=== PATIENT | female | born 1975 | race Two or more races ===

== ENCOUNTER → 2016-12-04 | Day surgery (SDC) | payer BC ==
[~2016-12-04] VITALS: Ht 162.6 cm; Wt 108.9 kg
[~2016-12-04] MED LIST: BUPIVACAINE-EPI 0.25%-1:200000 MPF 30 ML VIAL. ONE; CEFAZOLIN 2GM PREMIX 50 ML IV PRN; CEFOXITIN 1GM IVPB FOR OMNI 50 ML IV SCH; DESFLURANE 61 TO 120 MINUTES IH ONE; DESFLURANE > 120 MINUTES IH ONE; DEXAMETHASONE SOD PHOS 20 MG/5 ML VIAL. ONE; DOCU-27 PO; FAMOTIDINE 20 MG/2 ML VIAL ONE; FENTANYL PF 100 MCG/2 ML VIAL. IV PRN; FENTANYL PF 100 MCG/2 ML VIAL. ONE; GLYCOPYRROLATE 1 MG/5 ML VIAL. ONE; IBUP-1060 PO; IV RINGERS,LACTATED 1000ML 1,000 ML IV SCH; LIDOCAINE 1% 1 ML SYRINGE. ID PRN; LIDOCAINE 2% 100 MG/5 ML DISP.SYRIN. ONE; MORPHINE SULFATE 2 MG/ML DISP.SYRIN. IV PRN; MULT-245 PO; NEOSTIGMINE METHYLSULFATE 5 MG/5 ML SYRINGE. ONE; ONDANSETRON PF 4 MG/2 ML VIAL. IV PRN; ONDANSETRON PF 4 MG/2 ML VIAL. ONE; OXYC-323 PO; OXYCODONE/APAP 5/325 TABLET. PO PRN; PROCHLORPERAZINE 10 MG/2 ML VIAL. IV PRN; PROPOFOL 20 ML IV ONE; ROCURONIUM 50 MG/5 ML VIAL. ONE; SEVOFLURANE 61 TO 120 MINUTES. IH ONE; SURGICEL HEMOSTAT 4X8 EACH. ONE; TRAM50TA PO; TRIA1TAB3 PO; VENL75TA PO
--- NOTE | 2016-12-04 13:00 | PDOC ---
BRIEF OPERATIVE NOTE Pre-Op Diagnosis Right adnexal mass Post-Op Diagnosis ROV Cyst Procedure Performed [facility] Surgeon Dr. Oliva Anesthesia Type: General Blood Loss 10 ml Specimens Obtained RIght fallopian tube and Right ovary Findings Right complex ovarian cyst; nml DEBBIE and nml fallopian tubes danika. Complications none Additional Remarks pt. WADE Nassar Jr, MD Dec 04, 2016 13:00
--- NOTE | 2016-12-04 13:00 | DISCH ---
DISCHARGE INSTRUCTIONS Condition on Discharge Condition on Discharge: Stable Activity After Discharge Activity Instructions for Disc: Activity as tolerated Lifting Instructions after Dis: No heavy lifting Driving Instructions after Dis: Do not drive today Diet after Discharge Diet after Discharge: Regular Contacting the DRArthur after DC Call your doctor for: Concerns you may have Follow-Up Follow up with: Dr. Oliva in 1 week. WADE OLIVA Jr, MD Dec 04, 2016 13:00
[2016-12-04] MEDS: HYDROMORPHONE 2 MG/ML VIAL. IV PRN ×2 (13:07→13:18)
[2016-12-04 15:00] VITALS: BP 111/55
--- NOTE | 2016-12-04 18:02 | OP ---
DATE OF SURGERY: PREOPERATIVE DIAGNOSIS: Right adnexal mass. POSTOPERATIVE DIAGNOSIS: Right ovarian cyst. PROCEDURE: Laparoscopic RSO. SURGEON: Chan Oliva MD ANESTHESIA: GETA. ESTIMATED BLOOD LOSS: 10 mL. COMPLICATIONS: None. FINDINGS: Right complex ovarian cyst, normal left ovary, normal fallopian tubes bilaterally. COMPLICATIONS: None. SUMMARY: A 41-year-old with right adnexal mass with pain uncontrolled by medications. The patient was counseled on laparoscopic right ovarian cystectomy versus right salpingo-oophorectomy, risks, benefits and expectations and voiced a clear understanding to proceed. DESCRIPTION OF PROCEDURE: The patient was taken to surgery suite and placed in dorsal lithotomy position where she was prepped with ChloraPrep for abdominal prep and Betadine for vaginal prep. After adequate anesthesia, moist sponge stick was placed vaginally. Attention was then placed on abdomen. A small transverse skin incision was made just below the umbilicus with a scalpel. The Veress needle was then placed through the infraumbilical incision site. The abdomen was allowed to insufflate up to 1-1/2 liters of CO2 gas. The Veress needle was then removed. A 5 mm trocar was placed. The scope was positioned. The left fallopian tube and ovary appeared normal. The right ovary demonstrated a 6 cm complex cyst involving the entire ovary. Right fallopian tube appeared normal. Two incisions were made in the left lower quadrant with a scalpel in which 5 mm and 11 mm ports were placed. With the aid of graspers and EnSeal device, the right infundibula ligament was coagulated and dissected. The right fallopian tube and ovary were then placed in the Endobag and removed. Suction irrigation was utilized to verify good hemostasis. A small amount of normal saline was left in the posterior cul-de-sac. The trocars were then removed under direct visualization. The abdomen was allowed to deflate as much as possible along with mechanical manipulation. The left lower quadrant port which housed the 11 mm trocar was closed at the fascial layer using 2-0 Vicryl suture in a [id number] manner. The three skin incisions were reapproximated using 4-0 Vicryl suture in subcuticular manner. A 0.25% Marcaine with epinephrine was injected at each incision site. The moist sponge stick was then removed. The patient tolerated the procedure well and was taken to recovery room in stable condition. Sponge and needle counts correct x 3. CHAN OLIVA MD DR: SARAH/noah JOB#: [id number] / [id number]
--- NOTE | 2016-12-07 14:24 | PATHOLOGY ---
PATHOLOGY REPORT * * * * * * * * FINAL DIAGNOSIS: Fallopian tube and ovary, right salpingo-oophorectomy: - Follicular cyst of ovary. - Multiple small cystic follicles of ovary. COMMENT: There is no evidence of malignancy. (JPM:; d/t: 12/07/16) REPORT ELECTRONICALLY SIGNED BY: James Ochoa M.D. DATE/TIME: 12/07/2016 14:20 * * * * * * * * GROSS PATHOLOGY: The specimen is received in formalin labeled "Ktahleen Walker, right fallopian tube and ovary". Received is a 14 g adnexal specimen consisting of a fimbriated fallopian tube measuring 3.5 cm in length by 0.8 cm in diameter attached to a 3.5 x 3.2 x 1.5 cm ovary. The fallopian tube appears grossly unremarkable and sectioning through the ovary reveals multiple unilocular cystic structures ranging in size from 0.1 to 3.1 cm that are devoid of content. The cyst marcos are smooth in appearance with no gross evidence of papillary excrescences. A slight amount of normal pale aggarwal ovarian stroma is grossly identified. The specimen is submitted representatively in cassettes A1 through A4. (CAA; 12/04/2016) INITIAL CPT CODE(S): A; 46967 Professional services [place] [address] Technical services performed by [employer] at [address] [place] [address], [address] [address]. SPECIMEN(S) RECEIVED: A.Right fallopian tube and ovary CLINICAL HISTORY: Right ovarian cyst PATIENT: KATHLEEN WALKER /AGE: 8 1975 (Age: 41) PATIENT #: [id number] ALT CASE #: SPECIMEN COLLECTION DATE: 12/04/2016 SPECIMEN RECEIVED DATE: 12/04/2016 [facility] [place] [address] - PHONE: [phone] * * * END OF REPORT * * *
== END ==
LOC: SURG 09:48
PROVIDERS: ATTEND Obstetrics & Gynecology
DX: N83.201 Unspecified ovarian cyst, right side (principal); I10 Essential (primary) hypertension; F32.9 Major depressive disorder, single episode, unspecified; Z98.51 Tubal ligation status; Z90.710 Acquired absence of both cervix and uterus
CPT/HCPCS: 36415; 58661; 86850; 86900; 86901; J0690; J0694; J0780; J1100; J1170; J2405; J2704; J2710; J3010; J3490; S0028; 88305; A4215; C1782; J7030; J7120

== ENCOUNTER 2016-12-13 12:20 | Emergency (ER) | payer BC ==
[~2016-12-13] VITALS: Ht 157.5 cm; Wt 99.8 kg
[~2016-12-13 12:20] MED LIST changes: -BUPIVACAINE-EPI 0.25%-1:200000 MPF 30 ML VIAL. ONE; -CEFAZOLIN 2GM PREMIX 50 ML IV PRN; -CEFOXITIN 1GM IVPB FOR OMNI 50 ML IV SCH; -DESFLURANE 61 TO 120 MINUTES IH ONE; -DESFLURANE > 120 MINUTES IH ONE; -DEXAMETHASONE SOD PHOS 20 MG/5 ML VIAL. ONE; -FAMOTIDINE 20 MG/2 ML VIAL ONE; -FENTANYL PF 100 MCG/2 ML VIAL. IV PRN; -FENTANYL PF 100 MCG/2 ML VIAL. ONE; -GLYCOPYRROLATE 1 MG/5 ML VIAL. ONE; -IV RINGERS,LACTATED 1000ML 1,000 ML IV SCH; -LIDOCAINE 1% 1 ML SYRINGE. ID PRN; -LIDOCAINE 2% 100 MG/5 ML DISP.SYRIN. ONE; -MORPHINE SULFATE 2 MG/ML DISP.SYRIN. IV PRN; -NEOSTIGMINE METHYLSULFATE 5 MG/5 ML SYRINGE. ONE; -ONDANSETRON PF 4 MG/2 ML VIAL. IV PRN; -ONDANSETRON PF 4 MG/2 ML VIAL. ONE; -OXYCODONE/APAP 5/325 TABLET. PO PRN; -PROCHLORPERAZINE 10 MG/2 ML VIAL. IV PRN; -PROPOFOL 20 ML IV ONE; -ROCURONIUM 50 MG/5 ML VIAL. ONE; -SEVOFLURANE 61 TO 120 MINUTES. IH ONE; -SURGICEL HEMOSTAT 4X8 EACH. ONE
[2016-12-13] MEDS ORDERED: IV NORMAL SALINE 1000ML BAG 1,000 ML IV SCH (14:31)
[2016-12-13 14:43] LABS: BASO # 0.1 x10^3/uL (0.0-0.2); BASO % 1 % (0-3); EOS % 2 % (0-3); HEMATOCRIT 38.8 % (36.0-47.0); LYMPH # 3.4 x10^3/uL (1.0-4.8); LYMPH % 29 % (24-48); MEAN CORPUSCULAR HEMOGLOBIN 23 pg (25-35); MEAN CORPUSCULAR HGB CONC 31 g/dL (31-37); MEAN CORPUSCULAR VOLUME 73 fL (79-100); MONO % 5 % (0-9); NEUT % 63 % (31-73); PLATELET COUNT 338 x10^3/uL (140-400); RED BLOOD COUNT 5.29 x10^6/uL (3.50-5.40); RED CELL DISTRIBUTION WIDTH 20.5 % (11.5-14.5); WHITE BLOOD COUNT 11.8 x10^3/uL (4.0-11.0)
[2016-12-13 14:45] LABS: BILIRUBIN,URINE NEGATIVE (NEG); GLUCOSE,URINE NEGATIVE (NEG); NITRITE,URINE NEGATIVE (NEG); PROTEIN,URINE NEGATIVE (NEG-TRACE); UROBILINOGEN,URINE 0.2 mg/dL (0.2 mg/dL)
[2016-12-13] MEDS ORDERED: ONDANSETRON PF 4 MG/2 ML VIAL. IV ONE (14:45)
[2016-12-13 15:04] LABS: BACTERIA,URINE FEW /HPF (0-FEW); RBC,URINE 0 /HPF (0-2); SQUAMOUS EPITHELIAL CELL,UR MANY /LPF
[2016-12-13 15:07] LABS: ANION GAP 9 (6-14); BLOOD UREA NITROGEN 12 mg/dL (7-20); CALCIUM 8.8 mg/dL (8.5-10.1); CARBON DIOXIDE 28 mmol/L (21-32); CHLORIDE 101 mmol/L (98-107); CREATININE 0.6 mg/dL (0.6-1.0); GFR 110.7; GLUCOSE 85 mg/dL (70-99); SODIUM 138 mmol/L (136-145)
[2016-12-13 15:15] LABS: ALBUMIN 3.6 g/dL (3.4-5.0); ALK PHOS 88 U/L (46-116); ALT (SGPT) 28 U/L (14-59); AST (SGOT) 22 U/L (15-37); DIRECT BILIRUBIN < 0.1 mg/dL (0.0-0.2); TOTAL BILIRUBIN 0.2 mg/dL (0.2-1.0); TOTAL PROTEIN 7.6 g/dL (6.4-8.2)
[2016-12-13] MEDS ORDERED: FENTANYL PF 100 MCG/2 ML VIAL. IV ONE (15:45)
[2016-12-13] MEDS ORDERED: FAMOTIDINE 20 MG/2 ML VIAL IVP ONE (15:45)
--- NOTE | 2016-12-13 16:30 | PHYS DOC ---
Past Medical History Past Medical History: Other Additional Past Medical Histor: abnormal uterine bleeding Past Surgical History: Hysterectomy Additional Past Surgical Histo: uterine biopsy, Left ovarian CYST REMOVAL Alcohol Use: None Drug Use: None Adult General Chief Complaint Chief Complaint: ABDOMINAL PAIN HPI HPI Patient is a 41 year old female who presents with left upper quadrant abdominal pain that is constant and achy associated with nonbloody nonbilious emesis that started this morning. Her abdominal pain has since generalized. She denies fever or chills, diarrhea, constipation, dysuria, hematuria, chest pain, cough Review of Systems Review of Systems Constitutional: Denies fever or chills [] Eyes: Denies change in visual acuity, redness, or eye pain [] HENT: Denies nasal congestion or sore throat [] Respiratory: Denies cough or shortness of breath [] Cardiovascular: No additional information not addressed in HPI [] GI: Denies bloody stools or diarrhea [] : Denies dysuria or hematuria [] Musculoskeletal: Denies back pain or joint pain [] Integument: Denies rash or skin lesions [] Neurologic: Denies headache, focal weakness or sensory changes [] Endocrine: Denies polyuria or polydipsia [] Current Medications Current Medications Current Medications Medications (Trade) Dose Ordered Sig/Jed Start Time Stop Time Status Last Admin Dose Admin Famotidine (Pepcid) 20 mg 1X ONCE 12/13/16 15:45 12/13/16 15:46 DC 12/13/16 16:18 20 MG Fentanyl Citrate (Fentanyl 2ml Vial) 75 mcg 1X ONCE 12/13/16 15:45 12/13/16 15:46 DC 12/13/16 16:19 75 MCG Info (Do NOT chart on this entry -- for MONITORING) 1 each PRN DAILY PRN 12/13/16 16:45 12/13/16 18:24 DC Iohexol (Omnipaque 300 Mg/ml) 75 ml 1X ONCE 12/13/16 17:15 12/13/16 17:16 DC 12/13/16 17:25 75 ML Ondansetron HCl (Zofran) 4 mg 1X ONCE 12/13/16 14:45 12/13/16 14:46 DC 12/13/16 15:04 4 MG Sodium Chloride (Iv Sodium Chloride 0.9% 1000ml Bag) 1,000 ml @ 1,000 mls/hr Q1H 12/13/16 14:31 12/13/16 15:30 DC 12/13/16 15:04 1,000 MLS/HR Allergies Allergies Allergies Coded Allergies Type Severity Reaction Last Updated Verified No Known Drug Allergies 12/04/16 No Physical Exam Physical Exam Constitutional: Well developed, well nourished, no acute distress, non-toxic appearance. [] HENT: Normocephalic, atraumatic, bilateral external ears normal, oropharynx moist, nose normal. [] Eyes: PERRLA, EOMI. [] Neck: Normal range of motion, supple. [] Cardiovascular:Heart rate regular rhythm [] Lungs & Thorax: Bilateral breath sounds clear to auscultation [] Abdomen: Bowel sounds normal, soft, moderate left upper quadrant tenderness with minimal general, well-appearing surgical incisions, no guarding or rebound. [] Skin: Warm, dry, no erythema, no rash. [] Back: No tenderness, no CVA tenderness. [] Extremities: ROM intact, no edema. [] Neurologic: Alert and oriented X 3, normal motor function, normal sensory function, no focal deficits noted. [] Psychologic: Affect normal, judgement normal, mood normal. [] Current Patient Data Vital Signs Vital Signs Date Time Temp Pulse Resp B/P Pulse Ox O2 Delivery O2 Flow Rate FiO2 12/13/16 18:21 79 16 129/67 97 Room Air 12/13/16 14:14 97.9 97.9 Lab Values Laboratory Tests Test 12/13/16 14:10 12/13/16 14:18 Urine Collection Type Unknown Urine Color Yellow Urine Clarity Clear Urine pH 7.0 Urine Specific [place] 1.015 Urine Protein Negativemg/dL (NEG-TRACE) Urine Glucose (UA) Negativemg/dL (NEG) Urine Ketones (Stick) Negativemg/dL (NEG) Urine Blood Negative (NEG) Urine Nitrite Negative (NEG) Urine Bilirubin Negative (NEG) Urine Urobilinogen Dipstick 0.2mg/dL (0.2 mg/dL) Urine Leukocyte Esterase Negative (NEG) Urine RBC 0/HPF (0-2) Urine WBC 1-4/HPF (0-4) Urine Squamous Epithelial Cells Many/LPF Urine Bacteria Few/HPF (0-FEW) Urine Mucus Slight/LPF White Blood Count 11.8x10^3/uL (4.0-11.0) H Red Blood Count 5.29x10^6/uL (3.50-5.40) Hemoglobin 12.0g/dL (12.0-15.5) Hematocrit 38.8% (36.0-47.0) Mean Corpuscular Volume 73fL (79-100) L Mean Corpuscular Hemoglobin 23pg (25-35) L Mean Corpuscular Hemoglobin Concent 31g/dL (31-37) Red Cell Distribution Width 20.5% (11.5-14.5) H Platelet Count 338x10^3/uL (140-400) Neutrophils (%) (Auto) 63% (31-73) Lymphocytes (%) (Auto) 29% (24-48) Monocytes (%) (Auto) 5% (0-9) Eosinophils (%) (Auto) 2% (0-3) Basophils (%) (Auto) 1% (0-3) Neutrophils # (Auto) 7.4x10^3uL (1.8-7.7) Lymphocytes # (Auto) 3.4x10^3/uL (1.0-4.8) Monocytes # (Auto) 0.6x10^3/uL (0.0-1.1) Eosinophils # (Auto) 0.2x10^3/uL (0.0-0.7) Basophils # (Auto) 0.1x10^3/uL (0.0-0.2) Platelet Estimate Adequate (ADEQUATE) Hypochromasia Mod Poikilocytosis Slight Anisocytosis Mod Microcytosis Slight Sodium Level 138mmol/L (136-145) Potassium Level 4.0mmol/L (3.5-5.1) Chloride Level 101mmol/L (98-107) Carbon Dioxide Level 28mmol/L (21-32) Anion Gap 9 (6-14) Blood Urea Nitrogen 12mg/dL (7-20) Creatinine 0.6mg/dL (0.6-1.0) Estimated GFR (Cockcroft-Gault) 110.7 Glucose Level 85mg/dL (70-99) Calcium Level 8.8mg/dL (8.5-10.1) Total Bilirubin 0.2mg/dL (0.2-1.0) Direct Bilirubin < 0.1mg/dL (0.0-0.2) Aspartate Amino Transferase (AST) 22U/L (15-37) Alanine Aminotransferase (ALT) 28U/L (14-59) Alkaline Phosphatase 88U/L (46-116) Total Protein 7.6g/dL (6.4-8.2) Albumin 3.6g/dL (3.4-5.0) Lipase 302U/L (73-393) Laboratory Tests 12/13/16 14:18 Laboratory Tests 12/13/16 14:18 Radiology/Procedures Radiology/Procedures CT abdomen and pelvis with IV contrast IMPRESSION 1. Interval development of left spigelian containing fat. There is inflammatory change of the fat. 2. No acute intraperitoneal process is identified. Electronically signed by: Abilio Cortés MD (Dec 13, 2016 17:35:00) Course & Med Decision Making Course & Med Decision Making Pertinent Labs and Imaging studies reviewed. (See chart for details) Workup is unremarkable. She feels better after medications. She is tolerating oral intake. Will give trial of antacid medication. Return precautions given. She understands and agrees with plan. Dragon Disclaimer Dragon Disclaimer This electronic medical record was generated, in whole or in part, using a voice recognition dictation system. Departure Departure Impression: Primary Impression: Abdominal pain Additional Impression: Nausea Disposition: 01 HOME, SELF-CARE Condition: STABLE Referrals: ELIZABETH LAINEZ MD (PCP) Patient Instructions: Abdominal Pain (Nonspecific) Additional Instructions: Take Zofran as needed for nausea. Take Tylenol or ibuprofen as needed for pain. Follow-up with your primary care doctor within one week. Return for any concerns. Scripts Famotidine 20 Mg Trvvil46 Mg PO BID #30 TAB Prov:Manny SENIOR MD 12/13/16 Ondansetron (Zofran Odt)4 Mg Tab.rapdis1 Tab SL Q8HRS #10 TAB Prov:Manny SENIOR MD 12/13/16 Problem Qualifiers Primary Impression: Abdominal pain Abdominal location: left upper quadrant Qualified Code: R10.12 - Left upper quadrant pain Manny SENIOR MD Dec 13, 2016 16:30
[2016-12-13] MEDS ORDERED: CONTRAST GIVEN MC PRN (16:45)
[2016-12-13] MEDS ORDERED: IOHEXOL 300 MG/ML 75 ML VIAL IV ONE (17:15)
--- NOTE | 2016-12-13 17:36 | RAD ---
PROCEDURE CT abdomen pelvis with intravenous contrast. HISTORY Left-sided abdominal pain and nausea. TECHNIQUE After administration of intravenous contrast only, 75 mL Omnipaque 300, CT of the abdomen and pelvis was performed. Exposure: One or more of the following individualized dose reduction techniques were utilized for this examination: 1. Automated exposure control. 2. Adjustment of the mA and/or kV according to patient size. 3. Use of iterative reconstruction technique. COMPARISON CT abdomen pelvis November 29, 2016. FINDINGS Evaluation of enteric structures may be limited by lack of oral contrast. Liver, spleen, pancreas, gallbladder, and bilateral adrenal glands are unremarkable. Bilateral kidneys enhance symmetrically. No bowel obstruction or inflammation is seen. Appendix is without evidence of inflammation. Uterus is absent. There is interval development of a small fat containing Spigelian hat hernia with the hernia defect estimated to measure 1.4 centimeters in dimension. There is inflammation of the herniated fat. IMPRESSION 1. Interval development of left spigelian containing fat. There is inflammatory change of the fat. 2. No acute intraperitoneal process is identified. Electronically signed by: Abilio Cortés MD (Dec 13, 2016 17:35:00)
[2016-12-13] MEDS ORDERED: ONDA4TAB10 SL (18:14)
[2016-12-13 18:21] VITALS: BP 129/67
[2016-12-13] MEDS ORDERED: FAMO20TA5 PO (18:27)
[2016-12-13 18:57] LABS: ANISOCYTOSIS MOD; HYPOCHROMIA MOD; MICROCYTOSIS SLIGHT; PLT ESTIMATE ADEQUATE (ADEQUATE); POIKILOCYTOSIS SLIGHT
== END 2016-12-13 18:24 | disposition home or self-care (01) ==
LOC: ER 12:20
DX: R10.12 Left upper quadrant pain (principal); R11.2 Nausea with vomiting, unspecified; Z90.710 Acquired absence of both cervix and uterus
CPT/HCPCS: 36415; 74177; 80048; 80076; 81001; 83690; 85007; 85027; 96361; 96374; 96375; 99285; J2405; J3010; J7030; Q9967; S0028

== ENCOUNTER 2016-12-31 07:03 | Observation (INO) | payer BC ==
[~2016-12-31] VITALS: Ht 157.5 cm; Wt 104.3 kg
[2016-12-31] VITALS (16 sets, daily range): BP systolic 104–137; BP diastolic 53–74
[~2016-12-31 07:03] MED LIST changes: +CLINDAMYCIN 600MG PREMIX 50 ML IV PRN; +FAMO20TA5 PO; +FENTANYL PF 100 MCG/2 ML VIAL. IV PRN; +HYDROMORPHONE 2 MG/ML VIAL. IV PRN; +IV RINGERS,LACTATED 1000ML 1,000 ML IV SCH; +LIDOCAINE 1% 1 ML SYRINGE. ID PRN; +MORPHINE SULFATE 2 MG/ML DISP.SYRIN. IV PRN; +ONDA4TAB10 SL; +ONDANSETRON PF 4 MG/2 ML VIAL. IV PRN; +PROCHLORPERAZINE 10 MG/2 ML VIAL. IV PRN
--- NOTE | 2016-12-31 07:07 | HP ---
ADMIT DATE: 12/31/2016 HISTORY OF PRESENT ILLNESS: The patient is referred by Dr. Rahman because of right abdominal pain. Apparently, this has been there for 2 months. Her history is pertinent in that she had right tube removed about a month or two ago and had in August 2016 hysterectomy. The hysterectomy was for bleeding; I think the ovary was for cyst, but I am not sure. At any rate, she has had this pain for about 2 months, it is increasing, went to the Emergency Room, had a CT scan which I do not have the results of. Someone told her that she has spigelian hernia. I am not certain if that is true. We will have to see the CT scan. PAST MEDICAL HISTORY: Shows that she takes no medicine except for her legs were swollen and apparently, she takes HydroDIURIL or some type of diuretic for that and otherwise, no diseases. ALLERGIES: NOT CERTAIN. SOME SLEEPY MEDICINE MADE HER EYES SWELL UP, SHE DOES NOT KNOW WHAT THAT WAS. She does not speak [place] well and otherwise does not have any other problems, but the pain is quite severe and she wishes to have this looked into. I will go and look at the CT that she had and see if it was appropriate and if in fact she does have a hernia, we will plan to repair it. We will see her back in 6 days. We have given her Percocet for pain 5/325. Otherwise, we will see her back after I review the CT and make arrangements for other x-rays if necessary. FAMILY HISTORY: Noncontributory. She has 1 child, alive, he is 13. SOCIAL HISTORY: Does not smoke, drink or use illicit drugs. PHYSICAL EXAMINATION: GENERAL: Shows an obese female in no acute distress. HEAD, EARS, EYES, NOSE, AND THROAT: Grossly normal. LUNGS: Clear bilaterally to auscultation. HEART: No murmurs, heaves, friction rubs or thrills, and had a rate estimated to be about 72 beats per minute and it was regular. ABDOMEN: Tenderness in the mid abdomen on the left just lateral to the umbilicus. No masses could be demonstrated. There was no organomegaly otherwise. She did not have rebound or guarding, but just had tenderness there. Pelvic was not done. IMPRESSION: 1. Abdominal pain. 2. Possible spigelian hernia. EFREN SMITH MD DR: Bryon JOB#: [id number] / [id number]
[2016-12-31 07:46] LABS: CALCIUM 9.1 mg/dL (8.5-10.1); CREATININE 0.7 mg/dL (0.6-1.0); GFR 92.7; POTASSIUM 3.7 mmol/L (3.5-5.1)
[2016-12-31 07:52] LABS: ALBUMIN 3.3 g/dL (3.4-5.0); ALBUMIN/GLOBULIN RATIO 0.8 (1.0-1.7); PROTHROMBIN TIME PATIENT 12.4 SEC (11.7-14.0); TOTAL BILIRUBIN 0.3 mg/dL (0.2-1.0); TOTAL PROTEIN 7.6 g/dL (6.4-8.2)
[2016-12-31 07:57] LABS: BASO # 0.1 x10^3/uL (0.0-0.2); BASO % 1 % (0-3); EOS % 3 % (0-3); HEMATOCRIT 38.7 % (36.0-47.0); HEMOGLOBIN 12.3 g/dL (12.0-15.5); LYMPH # 3.3 x10^3/uL (1.0-4.8); LYMPH % 31 % (24-48); MEAN CORPUSCULAR HEMOGLOBIN 24 pg (25-35); MEAN CORPUSCULAR HGB CONC 32 g/dL (31-37); MEAN CORPUSCULAR VOLUME 74 fL (79-100); MONO % 7 % (0-9); NEUT % 59 % (31-73); PLATELET COUNT 294 x10^3/uL (140-400); RED BLOOD COUNT 5.22 x10^6/uL (3.50-5.40); RED CELL DISTRIBUTION WIDTH 21.9 % (11.5-14.5); WHITE BLOOD COUNT 10.4 x10^3/uL (4.0-11.0)
[2016-12-31] MEDS ORDERED: ONDANSETRON PF 4 MG/2 ML VIAL. ONE (08:33)
[2016-12-31] MEDS ORDERED: FAMOTIDINE 20 MG/2 ML VIAL ONE (08:33)
[2016-12-31] MEDS ORDERED: DEXAMETHASONE SOD PHOS 20 MG/5 ML VIAL. ONE (08:33)
[2016-12-31] MEDS ORDERED: LIDOCAINE 2% 100 MG/5 ML DISP.SYRIN. ONE (08:33)
[2016-12-31] MEDS ORDERED: PROPOFOL 20 ML IV ONE (08:33)
[2016-12-31] MEDS ORDERED: MIDAZOLAM HCL 2 MG/2 ML VIAL. ONE (08:35)
[2016-12-31] MEDS ORDERED: ROCURONIUM 50 MG/5 ML VIAL. ONE (08:36)
[2016-12-31] MEDS ORDERED: FENTANYL PF 100 MCG/2 ML VIAL. ONE ×2 (08:36→12:27)
--- NOTE | 2016-12-31 08:59 | PDOC ---
SURGICAL PROGRESS NOTE Subjective No change in dictated H&P. Vital Signs Vital Signs Date Time Temp Pulse Resp B/P Pulse Ox O2 Delivery O2 Flow Rate FiO2 12/31/16 07:26 98.2 87 16 155/77 96 Room Air 98.2 Labs Laboratory Tests Test 12/31/16 07:30 White Blood Count 10.4x10^3/uL (4.0-11.0) Red Blood Count 5.22x10^6/uL (3.50-5.40) Hemoglobin 12.3g/dL (12.0-15.5) Hematocrit 38.7% (36.0-47.0) Mean Corpuscular Volume 74fL (79-100) Mean Corpuscular Hemoglobin 24pg (25-35) Mean Corpuscular Hemoglobin Concent 32g/dL (31-37) Red Cell Distribution Width 21.9% (11.5-14.5) Platelet Count 294x10^3/uL (140-400) Neutrophils (%) (Auto) 59% (31-73) Lymphocytes (%) (Auto) 31% (24-48) Monocytes (%) (Auto) 7% (0-9) Eosinophils (%) (Auto) 3% (0-3) Basophils (%) (Auto) 1% (0-3) Neutrophils # (Auto) 6.2x10^3uL (1.8-7.7) Lymphocytes # (Auto) 3.3x10^3/uL (1.0-4.8) Monocytes # (Auto) 0.7x10^3/uL (0.0-1.1) Eosinophils # (Auto) 0.3x10^3/uL (0.0-0.7) Basophils # (Auto) 0.1x10^3/uL (0.0-0.2) Prothrombin Time 12.4SEC (11.7-14.0) Prothromb Time International Ratio 1.0 (0.8-1.1) Sodium Level 141mmol/L (136-145) Potassium Level 3.7mmol/L (3.5-5.1) Chloride Level 103mmol/L (98-107) Carbon Dioxide Level 26mmol/L (21-32) Anion Gap 12 (6-14) Blood Urea Nitrogen 14mg/dL (7-20) Creatinine 0.7mg/dL (0.6-1.0) Estimated GFR (Cockcroft-Gault) 92.7 BUN/Creatinine Ratio 20 (6-20) Glucose Level 98mg/dL (70-99) Calcium Level 9.1mg/dL (8.5-10.1) Total Bilirubin 0.3mg/dL (0.2-1.0) Aspartate Amino Transf (AST/SGOT) 21U/L (15-37) Alanine Aminotransferase (ALT/SGPT) 27U/L (14-59) Alkaline Phosphatase 87U/L (46-116) Total Protein 7.6g/dL (6.4-8.2) Albumin 3.3g/dL (3.4-5.0) Albumin/Globulin Ratio 0.8 (1.0-1.7) Laboratory Tests Test 12/31/16 07:30 White Blood Count 10.4x10^3/uL (4.0-11.0) Red Blood Count 5.22x10^6/uL (3.50-5.40) Hemoglobin 12.3g/dL (12.0-15.5) Hematocrit 38.7% (36.0-47.0) Mean Corpuscular Volume 74fL (79-100) Mean Corpuscular Hemoglobin 24pg (25-35) Mean Corpuscular Hemoglobin Concent 32g/dL (31-37) Red Cell Distribution Width 21.9% (11.5-14.5) Platelet Count 294x10^3/uL (140-400) Neutrophils (%) (Auto) 59% (31-73) Lymphocytes (%) (Auto) 31% (24-48) Monocytes (%) (Auto) 7% (0-9) Eosinophils (%) (Auto) 3% (0-3) Basophils (%) (Auto) 1% (0-3) Neutrophils # (Auto) 6.2x10^3uL (1.8-7.7) Lymphocytes # (Auto) 3.3x10^3/uL (1.0-4.8) Monocytes # (Auto) 0.7x10^3/uL (0.0-1.1) Eosinophils # (Auto) 0.3x10^3/uL (0.0-0.7) Basophils # (Auto) 0.1x10^3/uL (0.0-0.2) Prothrombin Time 12.4SEC (11.7-14.0) Prothromb Time International Ratio 1.0 (0.8-1.1) Sodium Level 141mmol/L (136-145) Potassium Level 3.7mmol/L (3.5-5.1) Chloride Level 103mmol/L (98-107) Carbon Dioxide Level 26mmol/L (21-32) Anion Gap 12 (6-14) Blood Urea Nitrogen 14mg/dL (7-20) Creatinine 0.7mg/dL (0.6-1.0) Estimated GFR (Cockcroft-Gault) 92.7 BUN/Creatinine Ratio 20 (6-20) Glucose Level 98mg/dL (70-99) Calcium Level 9.1mg/dL (8.5-10.1) Total Bilirubin 0.3mg/dL (0.2-1.0) Aspartate Amino Transf (AST/SGOT) 21U/L (15-37) Alanine Aminotransferase (ALT/SGPT) 27U/L (14-59) Alkaline Phosphatase 87U/L (46-116) Total Protein 7.6g/dL (6.4-8.2) Albumin 3.3g/dL (3.4-5.0) Albumin/Globulin Ratio 0.8 (1.0-1.7) EFREN SMITH MD Dec 31, 2016 08:59
[2016-12-31] MEDS ORDERED: SCOPOLAMINE 1.5MG PATCH. TD SCH (09:00)
--- NOTE | 2016-12-31 09:05 | PDOC ---
SURGICAL PROGRESS NOTE Subjective Op Note: Surgeon.....................................Thom Preop diag..................................Incarcerated ventral hernia Post op diag.............................. same Anesthesia.................................General Procedure...................................Repair incarcerated ventral hernia Drains........................................none Blood loss..................................20cc Fluids........................................see anesthesia sheet Condition....................................satisfactory Vital Signs Vital Signs Date Time Temp Pulse Resp B/P Pulse Ox O2 Delivery O2 Flow Rate FiO2 12/31/16 07:26 98.2 87 16 155/77 96 Room Air 98.2 Labs Laboratory Tests Test 12/31/16 07:30 White Blood Count 10.4x10^3/uL (4.0-11.0) Red Blood Count 5.22x10^6/uL (3.50-5.40) Hemoglobin 12.3g/dL (12.0-15.5) Hematocrit 38.7% (36.0-47.0) Mean Corpuscular Volume 74fL (79-100) Mean Corpuscular Hemoglobin 24pg (25-35) Mean Corpuscular Hemoglobin Concent 32g/dL (31-37) Red Cell Distribution Width 21.9% (11.5-14.5) Platelet Count 294x10^3/uL (140-400) Neutrophils (%) (Auto) 59% (31-73) Lymphocytes (%) (Auto) 31% (24-48) Monocytes (%) (Auto) 7% (0-9) Eosinophils (%) (Auto) 3% (0-3) Basophils (%) (Auto) 1% (0-3) Neutrophils # (Auto) 6.2x10^3uL (1.8-7.7) Lymphocytes # (Auto) 3.3x10^3/uL (1.0-4.8) Monocytes # (Auto) 0.7x10^3/uL (0.0-1.1) Eosinophils # (Auto) 0.3x10^3/uL (0.0-0.7) Basophils # (Auto) 0.1x10^3/uL (0.0-0.2) Prothrombin Time 12.4SEC (11.7-14.0) Prothromb Time International Ratio 1.0 (0.8-1.1) Sodium Level 141mmol/L (136-145) Potassium Level 3.7mmol/L (3.5-5.1) Chloride Level 103mmol/L (98-107) Carbon Dioxide Level 26mmol/L (21-32) Anion Gap 12 (6-14) Blood Urea Nitrogen 14mg/dL (7-20) Creatinine 0.7mg/dL (0.6-1.0) Estimated GFR (Cockcroft-Gault) 92.7 BUN/Creatinine Ratio 20 (6-20) Glucose Level 98mg/dL (70-99) Calcium Level 9.1mg/dL (8.5-10.1) Total Bilirubin 0.3mg/dL (0.2-1.0) Aspartate Amino Transf (AST/SGOT) 21U/L (15-37) Alanine Aminotransferase (ALT/SGPT) 27U/L (14-59) Alkaline Phosphatase 87U/L (46-116) Total Protein 7.6g/dL (6.4-8.2) Albumin 3.3g/dL (3.4-5.0) Albumin/Globulin Ratio 0.8 (1.0-1.7) Laboratory Tests Test 12/31/16 07:30 White Blood Count 10.4x10^3/uL (4.0-11.0) Red Blood Count 5.22x10^6/uL (3.50-5.40) Hemoglobin 12.3g/dL (12.0-15.5) Hematocrit 38.7% (36.0-47.0) Mean Corpuscular Volume 74fL (79-100) Mean Corpuscular Hemoglobin 24pg (25-35) Mean Corpuscular Hemoglobin Concent 32g/dL (31-37) Red Cell Distribution Width 21.9% (11.5-14.5) Platelet Count 294x10^3/uL (140-400) Neutrophils (%) (Auto) 59% (31-73) Lymphocytes (%) (Auto) 31% (24-48) Monocytes (%) (Auto) 7% (0-9) Eosinophils (%) (Auto) 3% (0-3) Basophils (%) (Auto) 1% (0-3) Neutrophils # (Auto) 6.2x10^3uL (1.8-7.7) Lymphocytes # (Auto) 3.3x10^3/uL (1.0-4.8) Monocytes # (Auto) 0.7x10^3/uL (0.0-1.1) Eosinophils # (Auto) 0.3x10^3/uL (0.0-0.7) Basophils # (Auto) 0.1x10^3/uL (0.0-0.2) Prothrombin Time 12.4SEC (11.7-14.0) Prothromb Time International Ratio 1.0 (0.8-1.1) Sodium Level 141mmol/L (136-145) Potassium Level 3.7mmol/L (3.5-5.1) Chloride Level 103mmol/L (98-107) Carbon Dioxide Level 26mmol/L (21-32) Anion Gap 12 (6-14) Blood Urea Nitrogen 14mg/dL (7-20) Creatinine 0.7mg/dL (0.6-1.0) Estimated GFR (Cockcroft-Gault) 92.7 BUN/Creatinine Ratio 20 (6-20) Glucose Level 98mg/dL (70-99) Calcium Level 9.1mg/dL (8.5-10.1) Total Bilirubin 0.3mg/dL (0.2-1.0) Aspartate Amino Transf (AST/SGOT) 21U/L (15-37) Alanine Aminotransferase (ALT/SGPT) 27U/L (14-59) Alkaline Phosphatase 87U/L (46-116) Total Protein 7.6g/dL (6.4-8.2) Albumin 3.3g/dL (3.4-5.0) Albumin/Globulin Ratio 0.8 (1.0-1.7) EFREN SMITH MD Dec 31, 2016 09:05
[2016-12-31] MEDS ORDERED: DESFLURANE 61 TO 120 MINUTES IH ONE ×2 (09:12→12:20)
[2016-12-31 09:44] LABS: PLT ESTIMATE ADEQUATE (ADEQUATE)
[2016-12-31 09:45] LABS: ANISOCYTOSIS MOD; HYPOCHROMIA SLIGHT; MICROCYTOSIS SLIGHT
[2016-12-31] MEDS ORDERED: BUPIVAC MPF-EPI 0.5%-1:200000 30 ML VIAL. ONE (09:59)
[2016-12-31] MEDS ORDERED: LIDOCAINE 1% / SOD BICARB 8.4% 20 ML VIAL. IJ ONE (10:00)
[2016-12-31] MEDS ORDERED: METHYLENE BLUE 1% 1 ML VIAL. IJ ONE (10:15)
--- NOTE | 2016-12-31 11:36 | RAD ---
Exam performed: CT-guided left abdominal wall hernia wire localization. History: Left lower abdominal wall hernia with pain. Patient is obese. Needle localization of the tiny abdominal wall hernia. Date of service: 12/31/16. Comparison: CT abdomen pelvis with contrast from 12/13/16 was reviewed. Technique: A preliminary scanning of the abdomen was performed with the grid marker in place in the left lower abdomen. A site was marked in the left lower abdomen. The part was then prepped and draped in the usual sterile fashion. Approximately 5 cc of 1% lidocaine was infiltrated into the skin and deeper tissues at the premarked site. Thereafter a 5 cm Kopan wire localization needle was advanced from the premarked site up to the hernia sac. After confirming needle tip, approximately 1.5 cc of methylene blue was injected through the needle. Thereafter the localization wire was placed and the needle was withdrawn. The completion images demonstrate the localization wire extending 0.5 cm cephalad to the point of entry up to the hernia sac. The images were reviewed with Dr. Tomas. Patient was then transferred to the OR in satisfactory condition. Impression: 1. Technically successful wire needle localization of a tiny left lower abdominal wall hernia sac. PQRS Compliance Statement: One or more of the following individualized dose reduction techniques were utilized for this examination: 1. Automated exposure control 2. Adjustment of the mA and/or kV according to patient size 3. Use of iterative reconstruction technique
[2016-12-31] MEDS ORDERED: BUPIVAC MPF-EPI 0.5%-1:200000 30 ML VIAL. IJ ONE (11:40)
[2016-12-31] MEDS ORDERED: KETOROLAC 60 MG/2 ML SYRINGE FOR OR. ONE (12:20)
[2016-12-31] MEDS ORDERED: BUPIVACAINE-EPI 0.5%-1:200000 50 ML VIAL. ONE (12:48)
[2016-12-31] MEDS ORDERED: GLYCOPYRROLATE 1 MG/5 ML VIAL. ONE (12:54)
[2016-12-31] MEDS ORDERED: NEOSTIGMINE METHYLSULFATE 5 MG/5 ML SYRINGE. ONE (12:54)
[2016-12-31] MEDS ORDERED: ONDANSETRON PF 4 MG/2 ML VIAL. IV PRN (13:45)
[2016-12-31] MEDS ORDERED: 0.9 % SODIUM CHLORIDE 10 ML DISP.SYRIN. IV PRN (13:45)
[2016-12-31] MEDS: FENTANYL PF 100 MCG/2 ML VIAL. IV PRN ×4 (13:52→14:33)
[2016-12-31] MEDS: OXYCODONE/APAP 5/325 TABLET. PO PRN ×2 (15:51→20:10)
[2016-12-31] MEDS: CEFAZOLIN SODIUM 1 GM in IV NORMAL SALINE 50ML 50 ML IV SCH (17:12)
[2016-12-31] MEDS ORDERED: HYDROMORPHONE STANDARD PCA 30 ML IV PRN (21:00)
[2016-12-31] MEDS: FAMOTIDINE 20 MG/2 ML VIAL IVP SCH (21:11)
[2017-01-01] MEDS: CEFAZOLIN SODIUM 1 GM in IV NORMAL SALINE 50ML 50 ML IV SCH ×2 (00:11→08:14)
[2017-01-01 00:45] VITALS: BP 116/56
--- NOTE | 2017-01-01 02:54 | OP ---
DATE OF SURGERY: SURGEON: Gilbert Smith MD PREOPERATIVE DIAGNOSIS: Incarcerated ventral hernia. POSTOPERATIVE DIAGNOSIS: Incarcerated ventral hernia. ANESTHESIA: General. PROCEDURE: Repair of ventral hernia. HISTORY: The patient had had a laparoscopic procedure for gynecologic problems done and since then had this pain, had a CT scan which showed hernia just lateral to the rectus muscle bilateral to the umbilicus. This was on the left. No bowel was in there. We could not palpate it and as such, she had needle localization of the area done by the radiologist prior to the procedure. We got a location of where the lesion was and proceeded. TECHNIQUE: Under general anesthesia, the patient was properly prepped and draped in routine fashion. A guidewire being about a centimeter below the hernia, we made an incision a little bit above the guidewire and with a 15 blade, made an incision, probably 3-4 inches in length. We, in the subcutaneous, identified the guidewire, mobilized it into the wound totally and then followed it down, then palpating the area just above this, we could feel the mass which was palpable. There was a lot of scarring around the area and I think it may have been related to one of the trocars from the laparoscopic procedure. As such, we ____ to identify the sac and cut the scar away from the sac. It was obvious that we could not reduce it and as such, we opened the sac, making certain not to injure any intraabdominal contents. We were able to push the fat in the hernia back as there was no bowel there. This was pushed back, we had to divide some of the adhesions around it and slowly we were able to reduce it. We then grasped medial and lateral edges of the first small hernia and pulled them over with Johnie clamps. We made certain all was free and then we closed the defect. We decided not to use mesh as we could not be certain exactly what was going on in the abdomen and did not want any mesh ____ the bowel, though we did not see any, but we could not be certain that there would be any there. As such, we simply closed the wound using four #1 Prolene sutures through and through the fascia. This was add-in just lateral to the rectus muscle. We having closed this, then anesthetized the fascia with 0.5% Marcaine and epinephrine. We proceeded to inspect the area, all was well. The redundant sac had been removed. The subcutaneous was then irrigated with copious amounts of saline and then approximated with 4-0 Vicryl in layers. The skin was closed using a subcuticular 5-0 Vicryl. A sterile Tegaderm dressing was applied as the incision was about 5 inches in length and Tegaderm was applied there. The procedure was now terminated. The blood loss was probably 10-15 mL. No drains were used. Fluids given can be obtained from the anesthesia sheet. The condition of the patient is satisfactory as she is returned to the recovery room. GILBERT SMITH MD DR: SAVANNAH/noah JOB#: [id number] / [id number]
[2017-01-01 03:00] VITALS: BP 118/62
[2017-01-01 06:03] LABS: BASO % 0 % (0-3); EOS % 0 % (0-3); HEMATOCRIT 34.9 % (36.0-47.0); HEMOGLOBIN 11.1 g/dL (12.0-15.5); LYMPH # 2.1 x10^3/uL (1.0-4.8); LYMPH % 15 % (24-48); MEAN CORPUSCULAR HEMOGLOBIN 23 pg (25-35); MEAN CORPUSCULAR HGB CONC 32 g/dL (31-37); MEAN CORPUSCULAR VOLUME 74 fL (79-100); MONO % 6 % (0-9); NEUT % 80 % (31-73); PLATELET COUNT 293 x10^3/uL (140-400); RED BLOOD COUNT 4.72 x10^6/uL (3.50-5.40); RED CELL DISTRIBUTION WIDTH 21.7 % (11.5-14.5); WHITE BLOOD COUNT 14.2 x10^3/uL (4.0-11.0)
[2017-01-01 06:15] LABS: CALCIUM 8.3 mg/dL (8.5-10.1); CREATININE 0.7 mg/dL (0.6-1.0); GFR 92.7
[2017-01-01 07:00] VITALS: BP 125/73
[2017-01-01] MEDS: FAMOTIDINE 20 MG/2 ML VIAL IVP SCH (09:24)
--- NOTE | 2017-01-01 10:29 | PDOC ---
SURGICAL PROGRESS NOTE Subjective POD#1 Doing well with the expected incisional pain. Dressing in tact and abd without guarding. Taking PO fluids without problems and is getting out of bed. WBC noted and lab otherwise neg. Will discharge and see in office in 2 weeks. Instructions given. Meds given to 12/30/2016. Vital Signs Vital Signs Date Time Temp Pulse Resp B/P Pulse Ox O2 Delivery O2 Flow Rate FiO2 01/01/17 07:20 Room Air 01/01/17 07:00 97.5 79 18 125/73 95 97.5 12/31/16 20:30 2.0 I&O Intake and Output 01/01/17 07:00 Intake Total 2770 ml Output Total 400 ml Balance 2370 ml Intake Oral 250 ml IV Total 2520 ml Output Urine Total 400 ml # Voids 3 Labs Laboratory Tests Test 12/31/16 07:30 01/01/17 05:25 White Blood Count 10.4x10^3/uL (4.0-11.0) 14.2x10^3/uL (4.0-11.0) Red Blood Count 5.22x10^6/uL (3.50-5.40) 4.72x10^6/uL (3.50-5.40) Hemoglobin 12.3g/dL (12.0-15.5) 11.1g/dL (12.0-15.5) Hematocrit 38.7% (36.0-47.0) 34.9% (36.0-47.0) Mean Corpuscular Volume 74fL (79-100) 74fL (79-100) Mean Corpuscular Hemoglobin 24pg (25-35) 23pg (25-35) Mean Corpuscular Hemoglobin Concent 32g/dL (31-37) 32g/dL (31-37) Red Cell Distribution Width 21.9% (11.5-14.5) 21.7% (11.5-14.5) Platelet Count 294x10^3/uL (140-400) 293x10^3/uL (140-400) Neutrophils (%) (Auto) 59% (31-73) 80% (31-73) Lymphocytes (%) (Auto) 31% (24-48) 15% (24-48) Monocytes (%) (Auto) 7% (0-9) 6% (0-9) Eosinophils (%) (Auto) 3% (0-3) 0% (0-3) Basophils (%) (Auto) 1% (0-3) 0% (0-3) Neutrophils # (Auto) 6.2x10^3uL (1.8-7.7) 11.3x10^3uL (1.8-7.7) Lymphocytes # (Auto) 3.3x10^3/uL (1.0-4.8) 2.1x10^3/uL (1.0-4.8) Monocytes # (Auto) 0.7x10^3/uL (0.0-1.1) 0.8x10^3/uL (0.0-1.1) Eosinophils # (Auto) 0.3x10^3/uL (0.0-0.7) 0.0x10^3/uL (0.0-0.7) Basophils # (Auto) 0.1x10^3/uL (0.0-0.2) 0.0x10^3/uL (0.0-0.2) Platelet Estimate Adequate (ADEQUATE) Hypochromasia Slight Anisocytosis Mod Microcytosis Slight Prothrombin Time 12.4SEC (11.7-14.0) Prothromb Time International Ratio 1.0 (0.8-1.1) Sodium Level 141mmol/L (136-145) 142mmol/L (136-145) Potassium Level 3.7mmol/L (3.5-5.1) 4.0mmol/L (3.5-5.1) Chloride Level 103mmol/L (98-107) 106mmol/L (98-107) Carbon Dioxide Level 26mmol/L (21-32) 26mmol/L (21-32) Anion Gap 12 (6-14) 10 (6-14) Blood Urea Nitrogen 14mg/dL (7-20) 14mg/dL (7-20) Creatinine 0.7mg/dL (0.6-1.0) 0.7mg/dL (0.6-1.0) Estimated GFR (Cockcroft-Gault) 92.7 92.7 BUN/Creatinine Ratio 20 (6-20) Glucose Level 98mg/dL (70-99) 108mg/dL (70-99) Calcium Level 9.1mg/dL (8.5-10.1) 8.3mg/dL (8.5-10.1) Total Bilirubin 0.3mg/dL (0.2-1.0) Aspartate Amino Transf (AST/SGOT) 21U/L (15-37) Alanine Aminotransferase (ALT/SGPT) 27U/L (14-59) Alkaline Phosphatase 87U/L (46-116) Total Protein 7.6g/dL (6.4-8.2) Albumin 3.3g/dL (3.4-5.0) Albumin/Globulin Ratio 0.8 (1.0-1.7) Laboratory Tests Test 01/01/17 05:25 White Blood Count 14.2x10^3/uL (4.0-11.0) Red Blood Count 4.72x10^6/uL (3.50-5.40) Hemoglobin 11.1g/dL (12.0-15.5) Hematocrit 34.9% (36.0-47.0) Mean Corpuscular Volume 74fL (79-100) Mean Corpuscular Hemoglobin 23pg (25-35) Mean Corpuscular Hemoglobin Concent 32g/dL (31-37) Red Cell Distribution Width 21.7% (11.5-14.5) Platelet Count 293x10^3/uL (140-400) Neutrophils (%) (Auto) 80% (31-73) Lymphocytes (%) (Auto) 15% (24-48) Monocytes (%) (Auto) 6% (0-9) Eosinophils (%) (Auto) 0% (0-3) Basophils (%) (Auto) 0% (0-3) Neutrophils # (Auto) 11.3x10^3uL (1.8-7.7) Lymphocytes # (Auto) 2.1x10^3/uL (1.0-4.8) Monocytes # (Auto) 0.8x10^3/uL (0.0-1.1) Eosinophils # (Auto) 0.0x10^3/uL (0.0-0.7) Basophils # (Auto) 0.0x10^3/uL (0.0-0.2) Sodium Level 142mmol/L (136-145) Potassium Level 4.0mmol/L (3.5-5.1) Chloride Level 106mmol/L (98-107) Carbon Dioxide Level 26mmol/L (21-32) Anion Gap 10 (6-14) Blood Urea Nitrogen 14mg/dL (7-20) Creatinine 0.7mg/dL (0.6-1.0) Estimated GFR (Cockcroft-Gault) 92.7 Glucose Level 108mg/dL (70-99) Calcium Level 8.3mg/dL (8.5-10.1) Problem List Problems Medical Problems: (1) Post-operative nausea and vomiting Status: Acute (2) Ventral hernia with obstruction Status: Acute Problems: EFREN SMITH MD Jan 01, 2017 10:29
[2017-01-01 11:00] VITALS: BP 115/54
[2017-01-01] MEDS: OXYCODONE/APAP 5/325 TABLET. PO PRN (11:34)
--- NOTE | 2017-01-01 15:28 | PATHOLOGY ---
PATHOLOGY REPORT * * * * * * * * FINAL DIAGNOSIS: Segments of fibromembranous and fibroadipose tissue, ventral hernia repair: - Hernia sac showing focal reactive fibrosis. (JPM:csd; d/t: 01/01/2017) REPORT ELECTRONICALLY SIGNED BY: James Ochoa M.D. DATE/TIME: 01/01/2017 15:27 * * * * * * * * GROSS PATHOLOGY: Received in formalin labeled "Kathleen Singh and ventral hernia sac," are several segments of blood-tinged, pink-aggarwal to yellow-aggarwal membranous and lobulated fibroadipose tissue measuring 6.0 x 2.2 x 0.9 cm. Some of the soft tissues were previously marked with blue ink. No nodules or lesions are identified. [employer] tissue is submitted in cassette A1. (TTL:robert; 12/31/2016) INITIAL CPT CODE(S): A; 19573 Professional services performed by [facility] [place] [address] Technical services performed by [facility] at [address] [place] [address] [address], [place] [address]. SPECIMEN(S) RECEIVED: A.Ventral hernia sac CLINICAL HISTORY: Ventral hernia PATIENT: KATHLEEN SINGH H /AGE: 8 1975 (Age: 41) PATIENT #: [id number] ALT CASE #: SPECIMEN COLLECTION DATE: 12/31/2016 SPECIMEN RECEIVED DATE: 12/31/2016 [facility] - [address] [place] [address] - PHONE: [phone] * * * END OF REPORT * * *
--- NOTE | 2017-01-01 21:44 | DS ---
DATE OF DISCHARGE: 01/01/2017 The patient had multiple surgeries, the last one about 6-8 weeks ago. She since had abdominal pain and CT scan showed in fact a ventral hernia just to the left of the left rectus muscle at above the level of the umbilicus. At any rate, she had rather much pain and difficulty from this, and as such, she had surgery on 12/31/2016 and had this hernia repaired. We did not use mesh, but she did have it repaired. She had postop incisional pain and still has pain, though it is different than the pain she had prior to surgery. The wound is healing without problems. She has no fever, though the white count was 14,000. She is taking liquids and p.o. without difficulties. No vomiting or nausea, and she is getting up. We would discharge her today and see her in 2 weeks in the office, and she has been instructed on no strenuous activity. She may shower with the Tegaderm dressing on, and she will resume her preop medications. We have given her Percocet for pain. IMPRESSION: Incarcerated ventral hernia. EFREN SMITH MD DR: SAVANNAH/noah JOB#: [id number] / [id number]
== END 2017-01-01 12:05 | disposition home or self-care (01) ==
LOC: SURG 07:03 → 4 NORTH 15:00
PROVIDERS: ADMIT Specialist; ATTEND Specialist
DX: K43.6 Other and unspecified ventral hernia with obstruction, without gangrene (principal)
CPT/HCPCS: 36415; 49561; 74176; 80048; 80053; 85007; 85027; 85610; 88302; 96365; 96375; 96376; A4215; G0378; G0379; J0690; J1100; J1170; J1885; J2250; J2405; J2704; J2710; J3010; J3490; J7120; Q9968; S0028

== ENCOUNTER 2018-08-31 16:27 | Emergency (ER) | payer BC ==
[~2018-08-31] VITALS: Ht 165.1 cm; Wt 90.7 kg
[~2018-08-31 16:27] MED LIST changes: -CLINDAMYCIN 600MG PREMIX 50 ML IV PRN; +DOCU-109 PO; -DOCU-27 PO; -FENTANYL PF 100 MCG/2 ML VIAL. IV PRN; -HYDROMORPHONE 2 MG/ML VIAL. IV PRN; -IV RINGERS,LACTATED 1000ML 1,000 ML IV SCH; -LIDOCAINE 1% 1 ML SYRINGE. ID PRN; -MORPHINE SULFATE 2 MG/ML DISP.SYRIN. IV PRN; -ONDANSETRON PF 4 MG/2 ML VIAL. IV PRN; -PROCHLORPERAZINE 10 MG/2 ML VIAL. IV PRN
--- NOTE | 2018-08-31 16:43 | PHYS DOC ---
Past Medical History Past Medical History: No Pertinent History, Other Additional Past Medical Histor: abnormal uterine bleeding Past Surgical History: Hysterectomy Additional Past Surgical Histo: uterine biopsy, Left ovarian CYST REMOVAL Alcohol Use: None Drug Use: None Adult General Chief Complaint Chief Complaint: ABDOMINAL PAIN HPI HPI Patient is a 43 year old female with history of hysterectomy, who presents today complaining of 10 out of 10 right-sided abdominal pain worse on the right lower quadrant that began yesterday. Patient describes the pain as sharp and constant. Denies any nausea vomiting. Denies any urinary symptoms. Denies any fever. States she has diarrhea Review of Systems Review of Systems Constitutional: Denies fever or chills [] Eyes: Denies change in visual acuity, redness, or eye pain [] HENT: Denies nasal congestion or sore throat [] Respiratory: Denies cough or shortness of breath [] Cardiovascular: No additional information not addressed in HPI [] GI: Reports right lower quadrant abdominal pain, denies nausea, vomiting, bloody stools or diarrhea [] : Denies dysuria or hematuria [] Musculoskeletal: Denies back pain or joint pain [] Integument: Denies rash or skin lesions [] Neurologic: Denies headache, focal weakness or sensory changes [] All other systems were reviewed and found to be within normal limits, except as documented in this note. Current Medications Current Medications Current Medications Medications (Trade) Dose Ordered Sig/Jed Start Time Stop Time Status Last Admin Dose Admin Info (CONTRAST GIVEN -- Rx MONITORING) 1 each PRN DAILY PRN 08/31/18 17:00 09/02/18 16:59 Iohexol (Omnipaque 300 Mg/ml) 75 ml 1X ONCE 08/31/18 17:00 08/31/18 17:01 DC 08/31/18 17:28 75 ML Morphine Sulfate (Morphine Sulfate) 5 mg 1X ONCE 08/31/18 16:45 08/31/18 16:46 DC 08/31/18 16:59 5 MG Ondansetron HCl (Zofran) 4 mg 1X ONCE 08/31/18 16:45 08/31/18 16:46 DC 08/31/18 16:59 4 MG Potassium Chloride (Klor-Con) 40 meq 1X ONCE 08/31/18 17:30 08/31/18 17:31 DC 08/31/18 17:54 40 MEQ Sodium Chloride 1,000 ml @ 1,000 mls/hr 1X ONCE 08/31/18 16:45 08/31/18 17:44 DC 08/31/18 16:59 1,000 MLS/HR Allergies Allergies Allergies Coded Allergies Type Severity Reaction Last Updated Verified No Known Drug Allergies 12/31/16 No Physical Exam Physical Exam Constitutional: Well developed, well nourished, no acute distress, non-toxic appearance. [] HENT: Normocephalic, atraumatic, bilateral external ears normal, oropharynx moist, no oral exudates, nose normal. [] Eyes: PERRLA, EOMI, conjunctiva normal, no discharge. [] Neck: Normal range of motion, no tenderness, supple, no stridor. [] Cardiovascular:Heart rate regular rhythm, no murmur [] Lungs & Thorax: Bilateral breath sounds clear to auscultation [] Abdomen: Bowel sounds normal, soft, mild to moderate right mid and lower abdominal tenderness, slight right upper quadrant tenderness, negative Raygoza sign, negative psoas sign, negative obturator sign, patient is guarding the right lower quadrant, no masses, no pulsatile masses. [] Skin: Warm, dry, no erythema, no rash. [] Back: No tenderness, no CVA tenderness. [] Extremities: No tenderness, no cyanosis, no clubbing, ROM intact, no edema. [] Neurologic: Alert and oriented X 3, normal motor function, normal sensory function, no focal deficits noted. [] Psychologic: Affect normal, judgement normal, mood normal. [] Current Patient Data Vital Signs Vital Signs Date Time Temp Pulse Resp B/P (MAP) Pulse Ox O2 Delivery O2 Flow Rate FiO2 08/31/18 16:36 98.1 97 18 179/86 (117) 98 98.1 Lab Values Laboratory Tests Test 08/31/18 16:45 White Blood Count 10.1 x10^3/uL (4.0-11.0) Red Blood Count 4.92 x10^6/uL (3.50-5.40) Hemoglobin 13.7 g/dL (12.0-15.5) Hematocrit 40.3 % (36.0-47.0) Mean Corpuscular Volume 82 fL (79-100) Mean Corpuscular Hemoglobin 28 pg (25-35) Mean Corpuscular Hemoglobin Concent 34 g/dL (31-37) Red Cell Distribution Width 14.8 % (11.5-14.5) H Platelet Count 338 x10^3/uL (140-400) Neutrophils (%) (Auto) 60 % (31-73) Lymphocytes (%) (Auto) 33 % (24-48) Monocytes (%) (Auto) 5 % (0-9) Eosinophils (%) (Auto) 1 % (0-3) Basophils (%) (Auto) 1 % (0-3) Neutrophils # (Auto) 6.0 x10^3uL (1.8-7.7) Lymphocytes # (Auto) 3.3 x10^3/uL (1.0-4.8) Monocytes # (Auto) 0.5 x10^3/uL (0.0-1.1) Eosinophils # (Auto) 0.1 x10^3/uL (0.0-0.7) Basophils # (Auto) 0.1 x10^3/uL (0.0-0.2) Urine Collection Type Unknown Urine Color Yellow Urine Clarity Clear Urine pH 8.5 Urine Specific [place] 1.020 Urine Protein 30 mg/dL (NEG-TRACE) Urine Glucose (UA) Negative mg/dL (NEG) Urine Ketones (Stick) Negative mg/dL (NEG) Urine Blood Negative (NEG) Urine Nitrite Negative (NEG) Urine Bilirubin Negative (NEG) Urine Urobilinogen Dipstick 0.2 mg/dL (0.2 mg/dL) Urine Leukocyte Esterase Negative (NEG) Urine RBC Occ /HPF (0-2) Urine WBC Rare /HPF (0-4) Urine Squamous Epithelial Cells Many /LPF Urine Bacteria Many /HPF (0-FEW) Urine Mucus Slight /LPF Sodium Level 141 mmol/L (136-145) Potassium Level 3.3 mmol/L (3.5-5.1) L Chloride Level 100 mmol/L (98-107) Carbon Dioxide Level 31 mmol/L (21-32) Anion Gap 10 (6-14) Blood Urea Nitrogen 8 mg/dL (7-20) Creatinine 0.7 mg/dL (0.6-1.0) Estimated GFR (Cockcroft-Gault) 91.8 BUN/Creatinine Ratio 11 (6-20) Glucose Level 115 mg/dL (70-99) H Calcium Level 9.0 mg/dL (8.5-10.1) Total Bilirubin 0.2 mg/dL (0.2-1.0) Aspartate Amino Transferase (AST) 31 U/L (15-37) Alanine Aminotransferase (ALT) 43 U/L (14-59) Alkaline Phosphatase 96 U/L (46-116) Total Protein 8.1 g/dL (6.4-8.2) Albumin 3.3 g/dL (3.4-5.0) L Albumin/Globulin Ratio 0.7 (1.0-1.7) L Lipase 118 U/L (73-393) Urine Opiates Screen Neg (NEG) Urine Methadone Screen Neg (NEG) Urine Barbiturates Neg (NEG) Urine Phencyclidine Screen Neg (NEG) Urine Amphetamine/Methamphetamine Neg (NEG) Urine Benzodiazepines Screen Neg (NEG) Urine Cocaine Screen Neg (NEG) Urine Cannabinoids Screen Neg (NEG) Ethyl Alcohol Level < 10 mg/dL (0-10) Urine Ethyl Alcohol Neg (NEG) Laboratory Tests 08/31/18 16:45 Laboratory Tests 08/31/18 16:45 EKG EKG [] Radiology/Procedures Radiology/Procedures []PROCEDURE: CT ABD PELV W/ IV CONTRST ONLY Examination: CT ABD PELV W/ IV CONTRST ONLY History: RIGHT LOWER QUADRANT ABD PAIN WITH NAUSEA
OMNI 300 75ML, PRIOR SENT Comparison/Correlation: 12/31/2016 CT abdomen and pelvis without contrast Findings: Axial images of the abdomen and pelvis were obtained. 75 cc Omnipaque 300 IV was utilized. Sagittal and coronal reformatted images were provided. Minimal right costophrenic sulcus atelectasis is present. Liver, spleen, pancreas, and adrenal glands are normal. Gallbladder fossa is unremarkable. Kidneys are normal. No extraluminal gas. Appendix is normal. Fluid distends the terminal ileum. Fluid is noted to mildly distend the ascending colon. No surrounding inflammatory change changes. Left adnexal 2.9 cm diameter cyst is present. Hysterectomy noted. Bony structures are unremarkable for the patient's age. Impression: Appendix is normal. No appendicitis. Fluid within the terminal ileum and colon. Correlate for enteritis. No surrounding inflammatory change about the bowel or wall thickening. No definite findings of obstruction. Left adnexal cyst. No aggressive features. Electronically signed by: Peter Boyd MD (08/31/2018 5:52 PM) [facility] DICTATED and SIGNED BY: PETER BOYD MD DATE: 08/31/181740 Course & Med Decision Making Course & Med Decision Making Pertinent Labs and Imaging studies reviewed. (See chart for details) This is a 43-year-old female patient presented to the ED today with right sided abdominal pain that began yesterday with diarrhea. CBC with a normal WBC. CMP with potassium of 3.2, patient was given oral potassium replacement. Urine analysis negative for nitrites, negative for leukocytes. Urine appears contaminated as well with many squamous cell epithelium. CT of the abdomen and pelvic was negative for appendicitis, noted for possible enteritis with no inflammatory changes noted on CT. Considering her white count is normal, i highly suspect this is likely viral. Discharged with dicyclomine, zofran and [place]. F/u with PCP next week or JAZZ Hogan Disclaimer Dragon Disclaimer This electronic medical record was generated, in whole or in part, using a voice recognition dictation system. Departure Departure Impression: Primary Impression: Enteritis Disposition: HOME, SELF-CARE Condition: STABLE Referrals: NO PCP (PCP) MIKE BOYER MD follow-up with your primary care doctor or the provided doctor in one week Patient Instructions: Viral Gastroenteritis, [id number] Additional Instructions: You were evaluated in the emergency room and noted to have enteritis. This is typically a viral illness. Take the prescribed medications as ordered. Follow- up with your doctor next week. Scripts Hydrocodone/Apap 5-325 (NORCO 5-325 TABLET) 1 Each Tablet 1 TAB PO Q6HRS, #20 TAB Prov: JIMBO YOON APRN 08/31/18 Dicyclomine Hcl (DICYCLOMINE HCL) 20 Mg Tablet 1 TAB PO TID, #30 TAB 0 Refills Prov: JIMBO YOON APRN 08/31/18 Ondansetron (ZOFRAN ODT) 4 Mg Tab.rapdis 1 TAB SL Q8HRS, #15 TAB Prov: JIMBO YOON APRN 08/31/18 JIMBO YOON APRN Aug 31, 2018 16:43
[2018-08-31 16:57] LABS: BASO # 0.1 x10^3/uL (0.0-0.2); BASO % 1 % (0-3); EOS # 0.1 x10^3/uL (0.0-0.7); EOS % 1 % (0-3); HEMATOCRIT 40.3 % (36.0-47.0); HEMOGLOBIN 13.7 g/dL (12.0-15.5); LYMPH # 3.3 x10^3/uL (1.0-4.8); LYMPH % 33 % (24-48); MEAN CORPUSCULAR HEMOGLOBIN 28 pg (25-35); MEAN CORPUSCULAR HGB CONC 34 g/dL (31-37); MEAN CORPUSCULAR VOLUME 82 fL (79-100); MONO # 0.5 x10^3/uL (0.0-1.1); MONO % 5 % (0-9); NEUT % 60 % (31-73); PLATELET COUNT 338 x10^3/uL (140-400); RED BLOOD COUNT 4.92 x10^6/uL (3.50-5.40); RED CELL DISTRIBUTION WIDTH 14.8 % (11.5-14.5); WHITE BLOOD COUNT 10.1 x10^3/uL (4.0-11.0)
[2018-08-31] MEDS: IV NORMAL SALINE 1000ML BAG 1,000 ML IV ONE (16:59)
[2018-08-31] MEDS: MORPHINE SULFATE 10 MG/ML VIAL. IV ONE (16:59)
[2018-08-31] MEDS: ONDANSETRON PF 4 MG/2 ML VIAL. IV ONE (16:59)
[2018-08-31] MEDS ORDERED: CONTRAST GIVEN. MC PRN (17:00)
[2018-08-31 17:04] LABS: CREATININE 0.7 mg/dL (0.6-1.0); GFR 91.8; POTASSIUM 3.3 mmol/L (3.5-5.1)
[2018-08-31 17:09] LABS: BILIRUBIN,URINE NEGATIVE (NEG); CLARITY,URINE CLEAR; COLOR,URINE YELLOW; NITRITE,URINE NEGATIVE (NEG); PH,URINE 8.5; PROTEIN,URINE 30 mg/dL (NEG-TRACE); UROBILINOGEN,URINE 0.2 mg/dL (0.2 mg/dL)
[2018-08-31 17:10] LABS: ALBUMIN 3.3 g/dL (3.4-5.0); ALBUMIN/GLOBULIN RATIO 0.7 (1.0-1.7); TOTAL BILIRUBIN 0.2 mg/dL (0.2-1.0); TOTAL PROTEIN 8.1 g/dL (6.4-8.2)
[2018-08-31 17:17] LABS: BACTERIA,URINE MANY /HPF (0-FEW); RBC,URINE OCC /HPF (0-2); SQUAMOUS EPITHELIAL CELL,UR MANY /LPF; WBC,URINE RARE /HPF (0-4)
[2018-08-31 17:25] LABS: BARBITURATES NEG (NEG); BENZODIAZEPINES NEG (NEG); CANNABINOIDS NEG (NEG); COCAINE NEG (NEG); METHADONE NEG (NEG); OPIATES NEG (NEG); PHENCYCLIDINE NEG (NEG)
[2018-08-31] MEDS: IOHEXOL 300 MG/ML 100ML VIAL. IV ONE (17:28)
[2018-08-31 17:31] LABS: AMPHETAMINE/METHAMPHETAMINE NEG (NEG)
[2018-08-31] MEDS: POTASSIUM CHLORIDE 20 MEQ TABLET.ER. PO ONE (17:54)
--- NOTE | 2018-08-31 17:55 | RAD ---
Examination: CT ABD PELV W/ IV CONTRST ONLY History: RIGHT LOWER QUADRANT ABD PAIN WITH NAUSEA
OMNI 300 75ML, PRIOR SENT Comparison/Correlation: 12/31/2016 CT abdomen and pelvis without contrast Findings: Axial images of the abdomen and pelvis were obtained. 75 cc Omnipaque 300 IV was utilized. Sagittal and coronal reformatted images were provided. Minimal right costophrenic sulcus atelectasis is present. Liver, spleen, pancreas, and adrenal glands are normal. Gallbladder fossa is unremarkable. Kidneys are normal. No extraluminal gas. Appendix is normal. Fluid distends the terminal ileum. Fluid is noted to mildly distend the ascending colon. No surrounding inflammatory change changes. Left adnexal 2.9 cm diameter cyst is present. Hysterectomy noted. Bony structures are unremarkable for the patient's age. Impression: Appendix is normal. No appendicitis. Fluid within the terminal ileum and colon. Correlate for enteritis. No surrounding inflammatory change about the bowel or wall thickening. No definite findings of obstruction. Left adnexal cyst. No aggressive features. Electronically signed by: Peter Cuevas MD (08/31/2018 5:52 PM) [facility]
[2018-08-31] MEDS ORDERED: ONDA4TAB10 SL (18:43)
[2018-08-31] MEDS ORDERED: DICY20TA3 PO (18:43)
[2018-08-31] MEDS ORDERED: HYDR-971 PO (18:43)
[2018-08-31 19:15] VITALS: BP 119/74
== END 2018-08-31 19:03 | disposition home or self-care (01) ==
LOC: ER 16:27
DX: K52.89 Other specified noninfective gastroenteritis and colitis (principal); Z90.710 Acquired absence of both cervix and uterus
CPT/HCPCS: 36415; 74177; 80053; 80307; 81001; 83690; 85025; 87086; 96361; 96374; 96375; 99285; G0480; J2270; J2405; J7030; Q9967; G0479

== ENCOUNTER → 2018-09-15 | Emergency (ER) | payer SELFPAY ==
[~2018-09-15] VITALS: Ht 165.1 cm; Wt 90.7 kg
[~2018-09-15] MED LIST changes: +CIPR500T94 PO; +CONTRAST GIVEN. MC PRN; +DICY20TA3 PO; +HYDR-971 PO; +IOHEXOL 300 MG/ML 100ML VIAL. IV ONE; +METR500T PO; +fentaNYL PF VIAL 100 MCG/2 ML VIAL IV ONE
[2018-09-15 16:55] LABS: BILIRUBIN,URINE NEGATIVE (NEG); CLARITY,URINE TURBID; COLOR,URINE YELLOW; NITRITE,URINE NEGATIVE (NEG); PROTEIN,URINE NEGATIVE (NEG-TRACE); UROBILINOGEN,URINE 0.2 mg/dL (0.2 mg/dL)
[2018-09-15 17:00] LABS: AMORPHOUS SEDIMENT,UR PRESENT /HPF; BACTERIA,URINE FEW /HPF (0-FEW); RBC,URINE 0 /HPF (0-2); SQUAMOUS EPITHELIAL CELL,UR MOD /LPF; WBC,URINE 0 /HPF (0-4)
[2018-09-15 17:02] LABS: BASO # 0.1 x10^3/uL (0.0-0.2); BASO % 1 % (0-3); EOS # 0.2 x10^3/uL (0.0-0.7); EOS % 1 % (0-3); HEMATOCRIT 40.6 % (36.0-47.0); HEMOGLOBIN 13.8 g/dL (12.0-15.5); LYMPH # 4.1 x10^3/uL (1.0-4.8); LYMPH % 28 % (24-48); MEAN CORPUSCULAR HEMOGLOBIN 28 pg (25-35); MEAN CORPUSCULAR HGB CONC 34 g/dL (31-37); MEAN CORPUSCULAR VOLUME 82 fL (79-100); MONO # 0.9 x10^3/uL (0.0-1.1); MONO % 6 % (0-9); NEUT # 9.5 x10^3uL (1.8-7.7); NEUT % 64 % (31-73); PLATELET COUNT 340 x10^3/uL (140-400); RED BLOOD COUNT 4.96 x10^6/uL (3.50-5.40); RED CELL DISTRIBUTION WIDTH 14.5 % (11.5-14.5); WHITE BLOOD COUNT 14.8 x10^3/uL (4.0-11.0)
[2018-09-15 17:15] LABS: CALCIUM 9.3 mg/dL (8.5-10.1); CREATININE 0.7 mg/dL (0.6-1.0); GFR 91.8; POTASSIUM 3.5 mmol/L (3.5-5.1)
[2018-09-15 17:19] LABS: ALBUMIN 3.5 g/dL (3.4-5.0); ALBUMIN/GLOBULIN RATIO 0.8 (1.0-1.7); TOTAL BILIRUBIN 0.1 mg/dL (0.2-1.0); TOTAL PROTEIN 7.7 g/dL (6.4-8.2)
--- NOTE | 2018-09-15 17:37 | RAD ---
Limited right lower quadrant ultrasound dated 09/15/2018. No comparison available. Clinical data indication: Right lower quadrant pain. FINDINGS: Sonographic imaging was performed of the right lower quadrant in order to localize the appendix. The appendix is not clearly visualized. No apparent mass or free fluid in the right lower quadrant. IMPRESSION: The appendix is not visualized. Appendicitis cannot be excluded based on this exam. Electronically signed by: Abilio Tubbs MD (09/15/2018 5:34 PM) [facility]
--- NOTE | 2018-09-15 19:03 | RAD ---
CT abdomen and pelvis with contrast HISTORY: Right upper quadrant pain, right lower quadrant pain. TECHNIQUE: Helical CT imaging of the abdomen and pelvis acquired with 75 mL Omnipaque 300 intravenous contrast. COMPARISON: CT abdomen and pelvis August 31, 2018. Abdomen findings: Mild groundglass densities at the left lung base similar the prior exam could represent areas of asymmetric atelectasis or pneumonitis. This is stable. Mild dependent right lower lobe groundglass atelectasis. Kidneys, adrenals, pancreas, spleen, liver and gallbladder are unremarkable. There is mild fold thickening of the left upper quadrant jejunum. No bowel obstruction. Appendix is normal. Fluid throughout the large bowel. Mild wall thickening and hypervascular enhancement and edema rectosigmoid colon. No abdominal fluid or adenopathy. Pelvis findings: 3 cm left ovarian hypodense lesion density of 45 units stable. Hysterectomy. Right ovary absent or atrophic arterial by bowel loops. Bladder and bones unremarkable. Rectosigmoid wall thickening. IMPRESSION: 1. Probable enterocolitis with mild wall thickening of the rectosigmoid colon and proximal jejunum at the left upper quadrant. No bowel obstruction. 2. 3 cm indeterminate left ovarian lesion with increased attenuation of 45 units. This could be a hemorrhagic cyst, endometrioma or a solid mass. 3. Asymmetric groundglass density at the lingula and left lower lobe could represent asymmetric atelectasis or pneumonitis. Per Fleischner guidelines follow-up imaging in 3-6 months is advised to document that this resolves. 4. Appendix is negative. Exposure: One or more of the following individualized dose reduction techniques were utilized for this examination: 1. Automated exposure control 2. Adjustment of the mA and/or kV according to patient size 3. Use of iterative reconstruction technique Electronically signed by: Aneesh Alvarez MD (09/15/2018 7:00 PM) [id number]
--- NOTE | 2018-09-15 19:34 | PHYS DOC ---
Past Medical History Past Medical History: No Pertinent History, Other Additional Past Medical Histor: abnormal uterine bleeding Past Surgical History: Hysterectomy, Other Additional Past Surgical Histo: uterine biopsy, Left ovarian CYST REMOVAL, HERNIA Alcohol Use: None Drug Use: None Adult General Chief Complaint Chief Complaint: ABDOMINAL PAIN [facility] HPI Patient is a 43 year old female who presents with abdominal pain. The patient was seen here on hold wean and diagnosed with enteritis. She states that her pain has continued since that date. She does state that when she has taken the pain medication that it is eased her symptoms slightly but that has not gone away. She states that when she got up this morning her pain was very severe. She denies nausea or vomiting. She denies fever. Review of Systems Review of Systems Constitutional: Denies fever or chills [] Respiratory: Denies cough or shortness of breath [] Cardiovascular: No additional information not addressed in HPI [] GI: See history of present illness : Denies dysuria or hematuria [] Musculoskeletal: Denies back pain or joint pain [] Integument: Denies rash or skin lesions [] Neurologic: Denies headache, focal weakness or sensory changes [] Endocrine: Denies polyuria or polydipsia [] All other systems were reviewed and found to be within normal limits, except as documented in this note. Current Medications Current Medications Current Medications Medications (Trade) Dose Ordered Sig/Jed Start Time Stop Time Status Last Admin Dose Admin Fentanyl Citrate (Fentanyl 2ml Vial) 50 mcg 1X ONCE 09/15/18 18:45 09/15/18 18:46 DC 09/15/18 19:16 50 MCG Info (CONTRAST GIVEN -- Rx MONITORING) 1 each PRN DAILY PRN 09/15/18 18:45 09/17/18 18:44 Iohexol (Omnipaque 300 Mg/ml) 75 ml 1X ONCE 09/15/18 18:45 09/15/18 18:46 DC 09/15/18 18:41 75 ML Allergies Allergies Allergies Coded Allergies Type Severity Reaction Last Updated Verified No Known Drug Allergies 12/31/16 No Physical Exam Physical Exam Constitutional: Well developed, well nourished, no acute distress, non-toxic appearance. [] Cardiovascular:Heart rate regular rhythm, no murmur [] Lungs & Thorax: Bilateral breath sounds clear to auscultation [] Abdomen: Bowel sounds normal, soft, tenderness to right upper and mid abdomen with palpation, no guarding, no masses, no pulsatile masses. [] Skin: Warm, dry, no erythema, no rash. [] Back: No tenderness, no CVA tenderness. [] Extremities: No tenderness, no cyanosis, no clubbing, ROM intact, no edema. [] Neurologic: Alert and oriented X 3, normal motor function, normal sensory function, no focal deficits noted. [] Psychologic: Affect normal, judgement normal, mood normal. [] Current Patient Data Vital Signs Vital Signs Date Time Temp Pulse Resp B/P (MAP) Pulse Ox O2 Delivery O2 Flow Rate FiO2 09/15/18 19:51 14 97 09/15/18 19:49 90 161/82 (108) Room Air 09/15/18 16:33 97.8 97.8 Lab Values Laboratory Tests Test 09/15/18 16:36 09/15/18 16:53 Urine Collection Type Unknown Urine Color Yellow Urine Clarity Turbid Urine pH 8.0 Urine Specific Archie 1.020 Urine Protein Negative mg/dL (NEG-TRACE) Urine Glucose (UA) Negative mg/dL (NEG) Urine Ketones (Stick) Negative mg/dL (NEG) Urine Blood Negative (NEG) Urine Nitrite Negative (NEG) Urine Bilirubin Negative (NEG) Urine Urobilinogen Dipstick 0.2 mg/dL (0.2 mg/dL) Urine Leukocyte Esterase Negative (NEG) Urine RBC 0 /HPF (0-2) Urine WBC 0 /HPF (0-4) Urine Squamous Epithelial Cells Mod /LPF Urine Amorphous Sediment Present /HPF Urine Bacteria Few /HPF (0-FEW) White Blood Count 14.8 x10^3/uL (4.0-11.0) H Red Blood Count 4.96 x10^6/uL (3.50-5.40) Hemoglobin 13.8 g/dL (12.0-15.5) Hematocrit 40.6 % (36.0-47.0) Mean Corpuscular Volume 82 fL (79-100) Mean Corpuscular Hemoglobin 28 pg (25-35) Mean Corpuscular Hemoglobin Concent 34 g/dL (31-37) Red Cell Distribution Width 14.5 % (11.5-14.5) Platelet Count 340 x10^3/uL (140-400) Neutrophils (%) (Auto) 64 % (31-73) Lymphocytes (%) (Auto) 28 % (24-48) Monocytes (%) (Auto) 6 % (0-9) Eosinophils (%) (Auto) 1 % (0-3) Basophils (%) (Auto) 1 % (0-3) Neutrophils # (Auto) 9.5 x10^3uL (1.8-7.7) H Lymphocytes # (Auto) 4.1 x10^3/uL (1.0-4.8) Monocytes # (Auto) 0.9 x10^3/uL (0.0-1.1) Eosinophils # (Auto) 0.2 x10^3/uL (0.0-0.7) Basophils # (Auto) 0.1 x10^3/uL (0.0-0.2) Sodium Level 141 mmol/L (136-145) Potassium Level 3.5 mmol/L (3.5-5.1) Chloride Level 100 mmol/L (98-107) Carbon Dioxide Level 32 mmol/L (21-32) Anion Gap 9 (6-14) Blood Urea Nitrogen 10 mg/dL (7-20) Creatinine 0.7 mg/dL (0.6-1.0) Estimated GFR (Cockcroft-Gault) 91.8 BUN/Creatinine Ratio 14 (6-20) Glucose Level 94 mg/dL (70-99) Calcium Level 9.3 mg/dL (8.5-10.1) Total Bilirubin 0.1 mg/dL (0.2-1.0) L Aspartate Amino Transferase (AST) 30 U/L (15-37) Alanine Aminotransferase (ALT) 42 U/L (14-59) Alkaline Phosphatase 110 U/L (46-116) Total Protein 7.7 g/dL (6.4-8.2) Albumin 3.5 g/dL (3.4-5.0) Albumin/Globulin Ratio 0.8 (1.0-1.7) L Laboratory Tests 09/15/18 16:53 Laboratory Tests 09/15/18 16:53 EKG EKG [] Radiology/Procedures Radiology/Procedures []PATIENT: SANG WESTBROOKCCOUNT: [id number]#: [id number] : 1975 LOCATION: ER AGE: 43 SEX: F EXAM STATUS: REG ER ORD. PHYSICIAN: TOMMY LAMB APRN REASON: rlq, ruq pain PROCEDURE: CT ABD PELV W/ IV CONTRST ONLY CT abdomen and pelvis with contrast HISTORY: Right upper quadrant pain, right lower quadrant pain. TECHNIQUE: Helical CT imaging of the abdomen and pelvis acquired with 75 mL Omnipaque 300 intravenous contrast. COMPARISON: CT abdomen and pelvis August 31, 2018. Abdomen findings: Mild groundglass densities at the left lung base similar the prior exam could represent areas of asymmetric atelectasis or pneumonitis. This is stable. Mild dependent right lower lobe groundglass atelectasis. Kidneys, adrenals, pancreas, spleen, liver and gallbladder are unremarkable. There is mild fold thickening of the left upper quadrant jejunum. No bowel obstruction. Appendix is normal. Fluid throughout the large bowel. Mild wall thickening and hypervascular enhancement and edema rectosigmoid colon. No abdominal fluid or adenopathy. Pelvis findings: 3 cm left ovarian hypodense lesion density of 45 units stable. Hysterectomy. Right ovary absent or atrophic arterial by bowel loops. Bladder and bones unremarkable. Rectosigmoid wall thickening. IMPRESSION: 1. Probable enterocolitis with mild wall thickening of the rectosigmoid colon and proximal jejunum at the left upper quadrant. No bowel obstruction. 2. 3 cm indeterminate left ovarian lesion with increased attenuation of 45 units. This could be a hemorrhagic cyst, endometrioma or a solid mass. 3. Asymmetric groundglass density at the lingula and left lower lobe could represent asymmetric atelectasis or pneumonitis. Per Fleischner guidelines follow-up imaging in 3-6 months is advised to document that this resolves. 4. Appendix is negative. Exposure: One or more of the following individualized dose reduction techniques were utilized for this examination: 1. Automated exposure control 2. Adjustment of the mA and/or kV according to patient size 3. Use of iterative reconstruction technique Electronically signed by: Saul Alvarez MD (09/15/2018 7:00 PM) [facility] DICTATED and SIGNED BY: SAUL ALVAREZ MD DATE: 09/15/18 493 Course & Med Decision Making Course & Med Decision Making Pertinent Labs and Imaging studies reviewed. (See chart for details) []Given the patient's failure on pain medication at home we will start her on antibiotics. She is in agreement with this plan. She is to return to the emergency department if she develops fever, worsening abdominal pain or excessive diarrhea. Samira Disclaimer Samira Disclaimer This electronic medical record was generated, in whole or in part, using a voice recognition dictation system. Departure Departure Impression: Primary Impression: Enterocolitis Disposition: HOME, SELF-CARE Condition: STABLE Referrals: NO PCP (PCP) Patient Instructions: Colitis Additional Instructions: Follow-up with your primary care provider for referral to a GI specialist. If worsening return to the emergency department. Take the medication as prescribed. Scripts Metronidazole (FLAGYL) 500 Mg Tablet 1 TAB PO BID for infection, #14 TAB Prov: TOMMY LAMB APRN 09/15/18 Ciprofloxacin Hcl (CIPRO) 500 Mg Tablet 1 TAB PO BID for infection, #20 TAB Prov: TOMMY LAMB APRN 09/15/18 TOMMY LAMB APRN Sep 15, 2018 19:34
[2018-09-15 19:49] VITALS: BP 161/82
== END ==
LOC: ER 16:30
DX: K52.89 Other specified noninfective gastroenteritis and colitis (principal); Z90.710 Acquired absence of both cervix and uterus
CPT/HCPCS: 36415; 74177; 80053; 81001; 85025; 93975; 96374; 99285; J3010; Q9967